=== PATIENT | female | born 1960 | race Caucasian/White ===

== ENCOUNTER → 2016-10-26 | Day surgery (SDC) | payer BC ==
[~2016-10-26] MED LIST: ADVI200C9 PO; ASPI81 PO; BENI40TA30 PO; BUPIVACAINE HCL PF 0.5% 30 ML VIAL ONE; CELE200 PO; CETI10CH PO; CO Q60CA2 PO; FISH1000 PO; KETOROLAC TROMETHAMINE 30 MG/ML (IVP) VIAL IV PUSH ONE; LACTATED RINGER'S 1000 ML INJ 1,000 ML ONE; LEVO50TA4 PO; LIDO5DIS35 TD; MIDAZOLAM HCL 2 MG/2 ML VIAL ONE; ONDANSETRON HCL 4 MG/2 ML VIAL IV PUSH ONE; ORAC40CA PO; PROPOFOL 100 MG/10 ML INJ IV ONE; PROPOFOL 200 MG/20 ML AMP IV ONE; SINGULAIR PO; TOPI100 PO; TRAM50TA PO; TRIAMCINOLONE ACETONIDE 40 MG/ML VIAL ONE; [UNRECOGNIZED DRUG - CODE]; [UNRECOGNIZED DRUG - CODE] PO; [UNRECOGNIZED DRUG - CODE] TOP; ceFAZolin 2 GM PREMIX 50 ML ONE
--- NOTE | 2016-10-29 16:25 | MP ---
cc: TEO DICKENS DPM DATE OF SURGERY: 10/29/2016. PREOPERATIVE DIAGNOSIS: Neuroma, left foot second interspace. POSTOPERATIVE DIAGNOSIS: Neuroma, left foot second interspace. OPERATIVE PROCEDURE PERFORMED: Resection of neuroma second interspace. SURGEON: Teo Dickens DPM. SPECIMEN: Neuroma, presumed deep soft tissue mass. ESTIMATED BLOOD LOSS: Less than 30 mL. COMPLICATIONS: None. INJECTABLES: Local anesthesia approximately 15 mL of 0.25% Marcaine plain and 0.5 mL of Kenalog 40. TOURNIQUET TIME: 32 minutes at a setting of 250 mmHg. PLAN OF ACTIVITY: Post-anesthesia care unit and then discharge home once stable per same day surgery criteria. DESCRIPTION OF THE PROCEDURE IN DETAIL: Under mild sedation, the patient was brought into the operating room and placed on the operating table in the supine position. Following the induction of LMA general anesthesia, local anesthesia was obtained about the patient's left forefoot utilizing standard block fashion. The left foot was then scrubbed, prepped and draped in the usual aseptic fashion. The foot was elevated, exsanguinated and the previously placed mid calf tourniquet was inflated to 250 mmHg. An incision was made over the dorsal aspect of the base of the third digit which was slightly curved into the level of the second interspace. Sharp and blunt dissection was carefully made through the dorsal adipose fascia being careful not to violate the neurovascular structures or the extensor tendons. Sharp and blunt dissection was carried down to the level of the second and third metatarsal heads which the intermetatarsal ligament was severed. There was noted to be inflammatory findings at the level of the second and third digit as it joined at the level of the second interspace nerve. The nerve was then dissected out carefully as it bifurcated being careful not to violate vascular structures. The nerve was then gently pulled distally as far as possible and injected with Kenalog 40 0.5 mL and then severed allowing for the trunk of the nerve to retract deep into the plantar musculature of the foot. The neuroma was then excised in toto and passed off the surgical field. Bovie ligation of venous structures took place as deemed necessary. Dermal closure took place utilizing Vicryl. The skin was closed utilizing a running Monocryl subcuticular. Upon relieving of the tourniquet, there was a prompt hyperemic response to all digits without any delayed capillary fill time. A bulky bandage placed. The patient was transferred from OR to PACU with all vital signs stable. She is to heel weight-bear. She will follow up within three to five days. KACY Stephen/OMKAR /2:10 PM /4:13 PM
== END | disposition home or self-care (01) ==
LOC: ESDC 11:10
PROVIDERS: ATTEND Podiatrist Foot & Ankle Surgery
DX: G57.62 Lesion of plantar nerve, left lower limb (principal)
CPT/HCPCS: 01470; 28080; 88304; J0690; J1885; J2250; J2405; J3010; J3301; J7120